=== PATIENT | male | born 1970 | race Caucasian/White ===

== ENCOUNTER 2017-08-15 11:00 | Emergency (ER) | payer OTHER ==
[2017-08-15 11:04] VITALS: BP 136/84; PULSE 85; RESP 20; TEMP 98.3
[2017-08-15] MEDS ORDERED: PENICILLIN VK 500MG STARTER 4 TAB BTL PO STA (11:13)
--- NOTE | 2017-08-15 11:18 | ED ---
ENT HPI - General Chief complaint: Dental/Oral Stated complaint: Facial Swelling Time Seen by Provider: 08/15/17 11:05 Source: patient, RN notes reviewed Mode of arrival: ambulatory Limitations: no limitations - History of Present Illness Initial comments: 47-year-old male presents emergency department to complaint of left side facial swelling. Patient states it started slightly yesterday worse today. He states he had severe pain this morning but has slightly alleviated. He feels pressure in his face and a mild headache denies any neck pain, neck stiffness. He states he has known bad teeth the left side he states he has she pulled one out while back. Patient states he has not made a tenderness appointment. Denies any sore throat, difficulty swelling, fever, chills. Patient has NO KNOWN DRUG ALLERGIES. He is been using some BC powder but no other [id number] medications. - Related Data Home Medications Medication Instructions Recorded Confirmed Aspirin EC [Ecotrin Low Dose] 81 mg PO DAILY 08/15/17 08/15/17 Bc Powder 1 pack PO DAILY PRN 08/15/17 08/15/17 Previous Rx's Medication Instructions Recorded Acetaminophen-Codeine 300-30mg 1 tab PO Q4H PRN #15 tablet 08/15/17 [Tylenol #3] Ibuprofen [Motrin] 600 mg PO Q8HR PRN #30 tab 08/15/17 Penicillin V Potassium [Pen Vee K] 500 mg PO QID #40 tablet 08/15/17 Allergies Allergy/AdvReac Type Severity Reaction Status Date / Time No Known Allergies Allergy Verified 08/15/17 11:08 Review of Systems ROS Statement: Those systems with pertinent positive or pertinent negative responses have been documented in the HPI. ROS Other: All systems not noted in ROS Statement are negative. Past Medical History Past Medical History: No Reported History History of Any Multi-Drug Resistant Organisms: None Reported Past Surgical History: Cholecystectomy Past Psychological History: No Psychological Hx Reported Smoking Status: Never smoker Past Alcohol Use History: Occasional Past Drug Use History: None Reported General Exam Limitations: no limitations General appearance: alert, in no apparent distress Head exam: Present: atraumatic, normocephalic, normal inspection Eye exam: Present: normal appearance, PERRL, EOMI (No pain with ocular movements ). Absent: scleral icterus, conjunctival injection, periorbital swelling ENT exam: Present: mucous membranes moist, TM's normal bilaterally, normal external ear exam. Absent: normal oropharynx (Dental caries, dental erosion left upper and lower , no drainable abscess there is noted facial swelling to the left) Neck exam: Present: normal inspection, full ROM. Absent: tenderness, meningismus, lymphadenopathy Respiratory exam: Present: normal lung sounds bilaterally. Absent: respiratory distress, wheezes, rales, rhonchi, stridor Cardiovascular Exam: Present: regular rate, normal rhythm, normal heart sounds. Absent: systolic murmur, diastolic murmur, rubs, gallop, clicks Skin exam: Present: warm, dry, intact, normal color. Absent: rash Course Vital Signs 08/15/17 11:02 Temperature 98.3 F Pulse Rate 85 Respiratory 20 Rate Blood Pressure 136/84 O2 Sat by Pulse 99 Oximetry Medical Decision Making - Medical Decision Making 47-year-old male presents from for left-sided facial swelling. Patient has abdominal infection. Patient placed on Penicillin VK, anti-inflammatories, codeine. Patient follow-up with dentist and return for any worsening symptoms. Disposition Clinical Impression: Dental caries, Dental abscess Disposition: HOME SELF-CARE Condition: Stable Instructions: Dental Abscess (ED) Additional Instructions: Please return to the Emergency Department if symptoms worsen or any other concerns.Please follow up with the [facility] dental clinic. [facility] [place] [address]. Phone number for new patients or [phone] for existing patients. Prescriptions: Acetaminophen-Codeine 300-30mg [Tylenol #3] 1 tab PO Q4H PRN #15 tablet PRN Reason: pain Ibuprofen [Motrin] 600 mg PO Q8HR PRN #30 tab PRN Reason: Pain Penicillin V Potassium [Pen Vee K] 500 mg PO QID #40 tablet Is patient prescribed a controlled substance at d/c from ED?: Yes If prescribed controlled substance>3 days was MAPS reviewed?: No When asked, does pt state using other controlled substances?: No Referrals: None,Stated [Primary Care Provider] - 1-2 days Time of Disposition: 11:18
== END 2017-08-15 11:30 | disposition home or self-care (01) ==
LOC: EC 11:00
DX: K04.7 Periapical abscess without sinus (principal); K02.9 Dental caries, unspecified; Z79.82 Long term (current) use of aspirin
CPT/HCPCS: 99283